=== PATIENT | female | born 1955 | race Caucasian/White ===

== ENCOUNTER → 2016-11-07 | Outpatient (CLI) | payer BC ==
[~2016-11-07] MED LIST: ASMANEX HF100 MCG/Ac IH; ASPIRIN 81M81 MG/TA2 PO; CINNAMON500 MG PO; COZAAR100 MG PO; FLONASE NASAL S16 GM NS; GLUCOPHAGE XR500 M1 PO; LASIX 20MG TABL20 MG PO; MASON NATURAL1200 MG PO; MULTIPLE VITAMI1 CAP PO; OSCAL 500 TAB500 MG PO; PROAIR HFA0.09 MG/AC IH; SINGULAIR 110 MG/TAB PO; SYNTHROID0.112 MG/T PO; TYLENOL W/COD1 UDTAB PO; VOLTAREN 75 DR75 MG PO
== END ==
LOC: SUN.DIA 08:43
DX: Z68.33 Body mass index [BMI] 33.0-33.9, adult (principal); E66.9 Obesity, unspecified; Z71.3 Dietary counseling and surveillance; E78.5 Hyperlipidemia, unspecified; I10 Essential (primary) hypertension; E05.90 Thyrotoxicosis, unspecified without thyrotoxic crisis or storm

== ENCOUNTER → 2017-10-18 | Outpatient (CLI) | payer BC | LOC: MC.RAD 09:53 | DX: Z12.31 Encounter for screening mammogram for malignant neoplasm of breast (principal) ==